=== PATIENT | male | born 1990 | race African-American/Black ===

== ENCOUNTER 2020-11-16 09:51 | Emergency (ER) | payer OTHER, SELFPAY ==
[2020-11-16 09:55] VITALS: BP 170/97; PULSE 100; RESP 20; TEMP 36.6; O2SAT 99
--- NOTE | 2020-11-16 11:15 | ED.SKABFB ---
HPI - Skin/Abscess/Foreign Bdy General Chief complaint: Skin/Abscess/Foreign Body Stated complaint: rash Time Seen by Provider: 11/16/20 10:17 Source: patient Mode of arrival: ambulatory Limitations: no limitations History of Present Illness HPI narrative: This is a 29-year-old male that presents to emergency department for rash on his penis present over the last couple of days. Reports every time him and his have sex and use baby oil he gets a rash on his penis. Reports dryness and irritation to the area. Reports the rash usually goes away on its own. Reports no concern for STDs. Denies any other rashes or lesions, dysuria, or abnormal urethral discharge. Related Data Home Medications Medication Instructions Recorded Confirmed No Home Medications 11/16/20 11/16/20 Allergies Allergy/AdvReac Type Severity Reaction Status Date / Time No Known Allergies Allergy Verified 11/16/20 09:58 Review of Systems Review of Systems: Narrative: CONSTITUTIONAL: Denies fever GENITOURINARY: Denies dysuria or hematuria SKIN: Reports rash. Denies itching All systems reviewed & are unremarkable except as noted in HPI and below PMFSH Past Medical History Medical History (Updated 11/16/20 @ 11:27 by Janny Isaacs PA-C) No significant past medical history Surgical History Surgical History No significant past surgical history Social History Social History Smoking status: Unknown if ever smoked Gender identity (if verbalized by the patient): Male Exam Narrative: Exam Narrative: GENERAL: Well-appearing, well-nourished, and in no acute distress. HEAD: Normocephalic, atraumatic. EYES: EOMI. EXTREMITIES: Normal range of motion. No edema. SKIN: Warm, dry, no rash. NEURO: No focal deficits. Alert and oriented x3. PSYCH: Normal mood and affect MALE GENITAL: Normal external genitalia, no rashes or lesions noted. No urethral discharge. Very mild dryness noted to the tip of the penis Course Vital Signs Vital signs: Vital Signs Temperature 97.9 F 11/16/20 09:55 Pulse Rate 100 11/16/20 09:55 Respiratory Rate 20 11/16/20 09:55 Blood Pressure 170/97 H 11/16/20 09:55 Pulse Oximetry 99 11/16/20 09:55 Temperature 97.9 F 11/16/20 09:55 Pulse Rate 100 11/16/20 09:55 Respiratory Rate 20 11/16/20 09:55 Blood Pressure 170/97 H 11/16/20 09:55 Pulse Oximetry 99 11/16/20 09:55 MDM - Skin/Abscess/Foreign Bdy MDM Narrative Medical decision making narrative: Patient presents to the ER for mild irritation to the penis with dryness in the area. Reports he has this problem every time he uses baby oil while being sexually active with his . Was instructed to stop using this product and use plain vaseline to the area to help with dryness. Denies any concern for STDs and would not like testing at this time. Was instructed to follow-up with a structural steel detailer if his rash persists Critical Care Time Critical Care Time Critical Care Time: No Discharge Plan Discharge Clinical Impression: Rash and nonspecific skin eruption Patient Disposition: Home, Self-Care Condition: Stable Instructions: Acute Rash (ED) Additional Instructions: Return to the emergency department if you experience fever, pain or burning with urination, blood in the urine, worsening rash, or any other symptoms that are concerning to you Stop using baby oil. Use plain Vaseline to the area to help with dryness and irritation Follow-up with a structural steel detailer if your rash persists Prescriptions: No Action No Home Medications RF: 0 Follow-up/Referrals: PHYSICIAN,[facility]ER [Primary Care Provider] -
== END 2020-11-16 11:54 | disposition home or self-care (01) ==
PROVIDERS: Emergency Provider Emergency Medicine
DX: R21 Rash and other nonspecific skin eruption (principal)
CPT/HCPCS: 99283

== ENCOUNTER 2021-04-01 03:29 | Emergency (ER) | payer OTHER, SELFPAY ==
--- NOTE | ~2021-04-01 | XR_ITS ---
EXAMINATION: XR knee LT min 4V EXAM DATE: 04/01/2021 04:03 INDICATION: Fall onto left knee, pain medially. TECHNIQUE: Left knee frontal, crosstable lateral, orthogonal oblique projections for interpretation. There is no prior study for comparison. FINDINGS: No evidence osteochondral defect or joint body in the left knee joint. No joint effusion . There are no acute fractures or dislocations identified. There is no subcutaneous gas. The soft t issue is unremarkable. There are no radiopaque foreign bodies. IMPRESSION: No acute osseous findings. . Reviewed, dictated and finalized at location A.
[2021-04-01 03:34] VITALS: BP 182/82; PULSE 104; RESP 18; TEMP 36.3; O2SAT 98
--- NOTE | 2021-04-01 03:39 | ED.GENADULT ---
HPI - General Adult General Chief complaint: Extremity Injury, Lower Stated complaint: hurt left knee Time Seen by Provider: 04/01/21 03:31 Source: RN notes reviewed History of Present Illness HPI narrative: Patient presents emergency department from home for left knee pain. Patient states that last night approximately p.m. he was playing vascularly states he came down from a rebound and twisted his left knee he states he has had pain over the medial aspect of the knee since that time she has pain is worse with full extension of the knee he denies any pain of the hip or ankle states he has been able to walk on the knee states is not take any medication for the symptoms Related Data Allergies Allergy/AdvReac Type Severity Reaction Status Date / Time No Known Allergies Allergy Verified 04/01/21 03:40 Review of Systems Review of Systems: Narrative: Gen.: Denies fevers or chills Musculoskeletal: See HPI Neuro: Denies numbness, tingling, weakness Skin: Denies rash Endo: Denies DM PMFSH Past Medical History Medical History (Updated 04/01/21 @ 04:15 by Sloan Martino DO) No significant past medical history Surgical History Surgical History No significant past surgical history Social History Social History Smoking status: Unknown if ever smoked Gender identity (if verbalized by the patient): Male Exam Narrative: Exam Narrative: APPEARANCE: No acute distress, nontoxic, resting in bed Eyes: EOMI HEENT: Normocephalic, atraumatic, RESPIRATORY: No respiratory distress MUSCULOSKELETAl: Tender palpation of the left medial knee no tenderness over the anterior lateral or posterior knee full flexion without pain pain with full extension the knee no pain with valgus or varus pressure, no tenderness of the hip or ankle dorsalis pedis pulse 2+ neurovascular intact NEURO: Awake and alert. Following commands, speech normal, no focal deficits SKIN:: Warm, dry. Normal Color no rash or lesions Course Course Emergency Course: Discussed with patient results of workup and diagnosis. Discussed need for follow-up with primary care, proper use of medication, and reasons to return to the emergency department. Patient understands and agrees to current treatment plan Vital Signs Vital signs: Vital Signs Temperature 97.3 F L 04/01/21 03:34 Pulse Rate 104 H 04/01/21 03:34 Respiratory Rate 18 04/01/21 03:34 Blood Pressure 182/82 H 04/01/21 03:34 Pulse Oximetry 98 04/01/21 03:34 Temperature 97.3 F L 04/01/21 03:34 Pulse Rate 104 H 04/01/21 03:34 Respiratory Rate 18 04/01/21 03:34 Blood Pressure 182/82 H 04/01/21 03:34 Pulse Oximetry 98 04/01/21 03:34 Medical Decision Making MDM Narrative Medical decision making narrative: Patient with pain of her medial knee worse with full extension x-rays within normal limits suspect meniscus injury while patient follow-up with Ortho as outpatient Vital Signs Vital Signs: Vital Signs Temperature 97.3 F L 04/01/21 03:34 Pulse Rate 104 H 04/01/21 03:34 Respiratory Rate 18 04/01/21 03:34 Blood Pressure 182/82 H 04/01/21 03:34 Pulse Oximetry 98 04/01/21 03:34 Temperature 97.3 F L 04/01/21 03:34 Pulse Rate 104 H 04/01/21 03:34 Respiratory Rate 18 04/01/21 03:34 Blood Pressure 182/82 H 04/01/21 03:34 Pulse Oximetry 98 04/01/21 03:34 Imaging Data Attestation: I personally reviewed and interpreted this imaging study as follows: My impression: Knee x-ray read myself shows no acute process Discharge Plan Discharge Clinical Impression: Left knee sprain Patient Disposition: Home, Self-Care Condition: Stable Instructions: Antibiotic Form, Knee Sprain (ED) Additional Instructions: Return for increasing pain numbness or tingling in extremities or any other symptoms of concern Prescriptions: New ibuprofen [IBU] 600 mg tablet
[2021-04-01] MEDS: IBUPROFEN 600 MG TABLET PO (03:49)
[2021-04-01 04:33] VITALS: BP 164/91; PULSE 107; RESP 14; O2SAT 98
== END 2021-04-01 04:31 | disposition home or self-care (01) ==
LOC: ANHED 04:20
PROVIDERS: Emergency Provider Emergency Medicine
DX: S83.92XA Sprain of unspecified site of left knee, initial encounter (principal); X50.9XXA Other and unspecified overexertion or strenuous movements or postures, initial encounter; Y93.67 Activity, basketball
CPT/HCPCS: 73564; 99283; A9270

== ENCOUNTER 2021-04-15 14:13 | Outpatient (CLI) | payer OTHER, SELFPAY ==
--- NOTE | ~2021-04-15 | MR_ITS ---
EXAMINATION: MR knee LT wo con DATE: 04/15/2021 14:55 INDICATION: Left knee pain. TECHNIQUE: Magnetic resonance imaging (MRI) of the left knee was performed without intravenous contra st. Sequences included axial PD-weighted FS FSE, coronal PD-weighted FSE and PD-weighted FS FSE, sagi ttal PD-weighted FSE, and sagittal T2-weighted FS FSE. COMPARISON: Left knee radiographs 04/01/21 FINDINGS: Medial compartment: There is a bucket-handle tear of the medial meniscus displaced into the intercondylar notch. Medial c ompartment cartilage is normal. Lateral compartment: Lateral meniscus is normal. Lateral compartment cartilage is normal. Patellofemoral compartment: Patellar cartilage is normal. Trochlear cartilage is normal. Ligaments and tendons: Anterior cruciate ligament is enlarged with increased signal and some indistinct fibers, consistent w ith partial tear. Posterior cruciate ligament is normal. There is edema around the medial collateral ligament, consistent with mild sprain (grade 1). There are changes of prior sprain of fibular collate ral ligament characterized by increased signal proximally. Fluid: There is a large knee joint effusion. There is a small Winslow's cyst. IMPRESSION: 1. Displaced bucket-handle tear of medial meniscus. 2. Partial tear of anterior cruciate ligament. 3. Large knee joint effusion. 4. Small Winslow's cyst. Reviewed, dictated and finalized at location A.
== END 2021-04-15 14:14 ==
PROVIDERS: Visit Provider Nurse Practitioner Family
DX: M71.22 Synovial cyst of popliteal space [Baker], left knee (principal); M25.462 Effusion, left knee; S83.212A Bucket-handle tear of medial meniscus, current injury, left knee, initial encounter; X58.XXXA Exposure to other specified factors, initial encounter
CPT/HCPCS: 73721

== ENCOUNTER 2021-04-16 11:03 | Emergency (ER) | payer OTHER, SELFPAY ==
[2021-04-16 11:08] VITALS: BP 177/98; PULSE 109; RESP 16; TEMP 36.8; O2SAT 99
--- NOTE | 2021-04-16 13:20 | ED.GENADULT ---
HPI - General Adult General Chief complaint: Urogenital-Male Stated complaint: STD test Time Seen by Provider: 04/16/21 11:25 Source: patient and RN notes reviewed Mode of arrival: ambulatory Limitations: no limitations History of Present Illness HPI narrative: Patient is a 30-year-old male who presents to emergency department for evaluation of concern for possible STD noting that his tested positive for trichomoniasis at a recent visit patient notes that he has no symptoms and presents for concern for testing patient does not have a primary care doctor patient on arrival to emergency department is in the room in no distress has not taken anything for his symptoms and again is asymptomatic Related Data Allergies Allergy/AdvReac Type Severity Reaction Status Date / Time No Known Allergies Allergy Verified 04/04/21 14:13 Review of Systems Review of Systems: All systems reviewed & are unremarkable except as noted in HPI and below PMFSH Past Medical History Medical History Left knee injury Left knee pain Medial meniscus tear No significant past medical history Surgical History Surgical History No significant past surgical history Social History Social History Smoking status: Never smoker Gender identity (if verbalized by the patient): Male Exam Narrative: Exam Narrative: GENERAL: Well-appearing, well-nourished, and in no acute distress. HEAD: Normocephalic, atraumatic. EYES: PERRLA and EOMI. ENT: Nares clear, no rhinorrhea or epistaxis. Mucous membranes moist. CHEST: Clear to auscultation. No respiratory distress. No wheezes rales or rhonchi HEART: Regular rate and rhythm. No murmur heard. EXTREMITIES: Normal range of motion. No edema. SKIN: Warm, dry, no rash. NEURO: No focal deficits. Alert and oriented x3. PSYCH: Normal mood and affect. Course Course Emergency Course: Patient's STD testing was performed trichomoniasis was negative patient prefers to follow with primary care for further evaluation ABCs and vital signs intact and stable Vital Signs Vital signs: Vital Signs Temperature 98.2 F 04/16/21 11:08 Pulse Rate 109 H 04/16/21 11:08 Respiratory Rate 16 04/16/21 11:08 Blood Pressure 177/98 H 04/16/21 11:08 Pulse Oximetry 99 04/16/21 11:08 Temperature 98.2 F 04/16/21 11:08 Pulse Rate 109 H 04/16/21 11:08 Respiratory Rate 16 04/16/21 11:08 Blood Pressure 177/98 H 04/16/21 11:08 Pulse Oximetry 99 04/16/21 11:08 Medical Decision Making MDM Narrative Medical decision making narrative: Patient presented for STD testing and was tested will follow with primary care given reasons to return Vital Signs Vital Signs: Vital Signs Temperature 98.2 F 04/16/21 11:08 Pulse Rate 109 H 04/16/21 11:08 Respiratory Rate 16 04/16/21 11:08 Blood Pressure 177/98 H 04/16/21 11:08 Pulse Oximetry 99 04/16/21 11:08 Temperature 98.2 F 04/16/21 11:08 Pulse Rate 109 H 04/16/21 11:08 Respiratory Rate 16 04/16/21 11:08 Blood Pressure 177/98 H 04/16/21 11:08 Pulse Oximetry 99 04/16/21 11:08 Lab Data Labs: Lab Results 04/16/21 04/16/21 Range/Units 11:46 11:46 C.trachomatis RNA (TMA) Pending N.gonorrhoeae RNA (TMA) Pending Trichomonas Direct ID Negative (Negative) Urine Characteristics Clear Discharge Plan Discharge Clinical Impression: Urethritis Patient Disposition: Home, Self-Care Condition: Stable Instructions: Antibiotic Form Additional Instructions: Follow with primary care for further evaluation and the remainder of your testing results in the next 2 to 3 days return if symptoms worsen or concerns or any increase in pain swelling discharge abdominal pain testicular pain vomitin
[2021-04-16 13:35] VITALS: BP 128/72; PULSE 76; RESP 18; TEMP 36.8; O2SAT 99
== END 2021-04-16 13:35 | disposition home or self-care (01) ==
PROVIDERS: Emergency Medicine Emergency Medical Services; Emergency Provider Emergency Medicine
DX: N34.2 Other urethritis (principal)
CPT/HCPCS: 87491; 87591; 87808; 99283